=== PATIENT | female | born 1990 | race Caucasian/White ===

== ENCOUNTER 2024-11-05 11:02 | Outpatient (CLI) | payer BC, SELFPAY ==
[2024-11-05 09:34] LABS: Abs Immature Grans 0.04 10^3/uL (0.0-0.06); Absolute Eosinophil Count 0.31 10^3/uL (0.0-0.7); Absolute Lymphocyte Count 1.85 10^3/uL (1.2-3.4); Basophils % 0.5 %; Eosinophils % 2.4 %; HCT 39.6 % (36.0-46.0); HGB 13.7 g/dL (11.2-15.7); Immature Grans % 0.3 %; Lymphocytes % 14.5 %; MCH 31.2 pg (27.0-33.0); MCHC 34.6 % (32.0-36.0); MCV 90 fL (80-95); MPV 9.4 fL (8.0-11.0); Neutrophils % 76.3 %; Platelet Count 240 10^3/uL (130-400); RBC 4.39 10^6/uL (3.93-5.22); RDW 11.6 % (11.7-14.6); RDW-SD 37.9 fL; WBC 12.74 10^3/uL (4.4-10.8)
[2024-11-05 09:35] LABS: Absolute Basophil Count 0.06 10^3/uL (0.0-0.2); Absolute Monocyte Count 0.76 10^3/uL (0.1-0.8); Absolute Neutrophil Count 9.72 10^3/uL (1.2-6.7)
== END 2024-11-05 11:03 | disposition home or self-care (01) ==
LOC: LBO 11:02
PROVIDERS: PCP Nurse Practitioner Family; Visit Provider Obstetrics & Gynecology
DX: O20.9 Hemorrhage in early pregnancy, unspecified (principal); Z34.91 Encounter for supervision of normal pregnancy, unspecified, first trimester
CPT/HCPCS: 36415; 86850; 86900; 86901; 85025

== ENCOUNTER 2024-11-13 03:23 | Outpatient (CLI) | payer BC, SELFPAY ==
[2024-11-13 15:47] LABS: Panorama Kit Sent via Fed Ex
[2024-11-13 15:56] LABS: Abs Immature Grans 0.05 10^3/uL (0.0-0.06); Absolute Basophil Count 0.07 10^3/uL (0.0-0.2); Absolute Eosinophil Count 0.41 10^3/uL (0.0-0.7); Absolute Lymphocyte Count 2.19 10^3/uL (1.2-3.4); Absolute Monocyte Count 0.77 10^3/uL (0.1-0.8); Absolute Neutrophil Count 10.54 10^3/uL (1.2-6.7); Basophils % 0.5 %; Eosinophils % 2.9 %; HCT 35.1 % (36.0-46.0); HGB 12.3 g/dL (11.2-15.7); Immature Grans % 0.4 %; Lymphocytes % 15.6 %; MCH 31.1 pg (27.0-33.0); MCV 89 fL (80-95); MPV 9.8 fL (8.0-11.0); Monocytes % 5.5 %; Neutrophils % 75.1 %; Platelet Count 272 10^3/uL (130-400); RBC 3.95 10^6/uL (3.93-5.22); RDW 11.8 % (11.7-14.6); RDW-SD 37.9 fL; WBC 14.03 10^3/uL (4.4-10.8)
[2024-11-13 22:40] LABS: Hepatitis B Surface Ag Negative (Negative)
[2024-11-13 23:12] LABS: HIV-1/2 Ag & Ab Screen Negative (Negative)
[2024-11-13 23:15] LABS: Hepatitis C Ab w Rflx HCV PCR Negative (Negative)
[2024-11-14 11:17] LABS: Rubella IgG Ab (UVM) Positive (See Note)
[2024-11-14 11:20] LABS: Varicella IgG Antibody Positive (See Note)
[2024-11-15 18:14] LABS: Syphilis IgG w/Reflex Nonreactive (Nonreactive)
[2024-11-17 01:29] LABS: Specimen WB Whole Blood
[2024-11-26 12:32] LABS: Result Summary NEGATIVE; Specimen WB Whole Blood
== END 2024-11-13 03:24 | disposition home or self-care (01) ==
LOC: LBO 03:23
PROVIDERS: PCP Nurse Practitioner Family; Visit Provider Advanced Practice Midwife
DX: Z34.91 Encounter for supervision of normal pregnancy, unspecified, first trimester (principal)
CPT/HCPCS: 81220; 81222; 81329; 86787; 86803; 86850; 86900; 86901; 87340; 87389; 85025; 86762; 86780

== ENCOUNTER 2024-11-13 15:14 | Outpatient (REF) | payer BC, SELFPAY ==
[2024-11-15 13:24] LABS: Chlamydia Result Negative (Negative); GC Result Negative (Negative)
== END 2024-11-13 15:15 | disposition home or self-care (01) ==
LOC: LBN 15:14
PROVIDERS: PCP Nurse Practitioner Family; Visit Provider Advanced Practice Midwife
DX: Z34.91 Encounter for supervision of normal pregnancy, unspecified, first trimester (principal)
CPT/HCPCS: 87491; 87591; 87086

== ENCOUNTER 2024-12-10 02:45 | Outpatient (CLI) | payer BC, SELFPAY ==
[2024-12-13 15:20] LABS: AFP 38.7 ng/mL; Cigarette smoking status non-Smoker; GA used in risk estimate Scan estimate; IVF Pregnancy No; Initial or repeat testing Initial testing; Insulin dependent diabetes No; Maternal Weight 147 lbs; Number of Fetuses 1; Prev Pregnancy w/NTD No; RECOMMENDED FOLLOW UP None.; Results Summary Normal risk
== END 2024-12-10 02:46 | disposition home or self-care (01) ==
LOC: LBO 02:45
PROVIDERS: Advanced Practice Midwife; PCP Nurse Practitioner Family; Visit Provider Advanced Practice Midwife
DX: Z34.91 Encounter for supervision of normal pregnancy, unspecified, first trimester (principal)
CPT/HCPCS: 36415; 82105

== ENCOUNTER 2025-02-26 00:26 | Outpatient (CLI) | payer BC, SELFPAY ==
[2025-02-26 16:45] LABS: HCT 33.1 % (36.0-46.0); HGB 11.3 g/dL (11.2-15.7); MCHC 34.1 % (32.0-36.0); MCV 91 fL (80-95); MPV 10.4 fL (8.0-11.0); Platelet Count 214 10^3/uL (130-400); RBC 3.65 10^6/uL (3.93-5.22); RDW 12.6 % (11.7-14.6); RDW-SD 41.9 fL; WBC 11.63 10^3/uL (4.4-10.8)
[2025-02-26 16:58] LABS: Glucose,1 Hr (Glucola) 84 mg/dL (80-140)
== END 2025-02-26 00:27 | disposition home or self-care (01) ==
LOC: LBO 00:26
PROVIDERS: Advanced Practice Midwife; PCP Nurse Practitioner Family; Visit Provider Advanced Practice Midwife
DX: Z34.90 Encounter for supervision of normal pregnancy, unspecified, unspecified trimester (principal)
CPT/HCPCS: 36415; 82950; 85027

== ENCOUNTER 2025-04-23 15:49 | Outpatient (REF) | payer BC, SELFPAY | END 2025-04-23 15:50 | disposition home or self-care (01) | LOC: LBN 15:49 | PROVIDERS: PCP Nurse Practitioner Family; Visit Provider Advanced Practice Midwife | DX: Z34.93 Encounter for supervision of normal pregnancy, unspecified, third trimester (principal); Z3A.35 35 weeks gestation of pregnancy | CPT/HCPCS: 87081 ==

== ENCOUNTER 2025-05-29 07:36 | Outpatient (CLI) | payer BC, SELFPAY ==
[2025-05-29] VITALS (7 sets, daily range): BP systolic 135–147; BP diastolic 87–103; PULSE 65–79; TEMP 36.7
[2025-05-29 11:24] LABS: HCT 34.6 % (36.0-46.0); HGB 11.8 g/dL (11.2-15.7); MCH 30.6 pg (27.0-33.0); MCHC 34.1 % (32.0-36.0); MCV 90 fL (80-95); MPV 11.3 fL (8.0-11.0); Platelet Count 186 10^3/uL (130-400); RBC 3.85 10^6/uL (3.93-5.22); RDW 12.3 % (11.7-14.6); RDW-SD 40.2 fL; WBC 11.08 10^3/uL (4.4-10.8)
[2025-05-29 11:40] LABS: ALT 18 U/L (14-59); AST 25 U/L (15-37); Albumin 2.8 g/dL (3.4-5.0); Alkaline Phosphatase 165 U/L (46-116); Anion Gap 7.5 mmol/L (3-11); BUN 12 mg/dL (7-18); Bilirubin, Total 0.3 mg/dL (0.2-1.0); CO2 25.5 mmol/L (21.0-32.0); Calcium 8.7 mg/dL (8.5-10.1); Chloride 104 mmol/L (98-107); Estimated GFR 126.93 (mL/min/1.73m2); Glucose 77 mg/dL (74-106); Potassium 3.9 mmol/L (3.5-5.1); Sodium 137 mmol/L (136-145); Total Protein 6.4 g/dL (6.4-8.2); Uric Acid 4.8 mg/dL (2.6-6.0)
--- NOTE | 2025-05-29 12:29 | PDOC.NST_ITS ---
Date of service: 05/29/25 Time of Service: 12:29 NST Evaluation Reason for NST Reasons for Nonstress Test: POSTDATES Gestational Age Gestational Age in Weeks and Days: 41 Weeks and 0Days Test and Monitor Explained Test/Monitor Explained: Test Explained, Monitor Explained and Patient Verbalized Understanding Vital Signs Blood Pressure: 135/87 Pulse: 71 Temperature: 98.1 F NST Information Date on Monitor: 05/29/25 Time on Monitor: 10:05 Date off Monitor: 05/29/25 Time off Monitor: 11:58 Total Time on Monitor: 113 NST Interventions: PO Hydration Contraction Frequency: irregular, mild NST Evaluation Patient States Movement: Present FHR Baseline: 120 Variability: Moderate 6-25 bpm Accelerations: 15x15 Decelerations: None NST Results: Reactive Note Ultrasound Done: N/A. NST Note Note: Katerine Quinones came in for NST at 41 weeks. Her BP was elevated today and preeclampsia labs were drawn. She denies history of hypertension. serum labs WNL. protein/creatinene ratio pending. I discussed indication for IOL today and she agrees. She went home to pack and arrange child care centre director for her child and will return this afternoon for cervical ripening. Cervical exam declined at this time. NST Reviewed and Verified by: Ariana Santos
[2025-05-29 12:47] LABS: PROTEIN < 6.0 mg/dL
== END 2025-05-29 12:05 ==
LOC: BCD 07:37 → OBS 10:11
PROVIDERS: PCP Nurse Practitioner Family; Visit Provider Advanced Practice Midwife
DX: O48.0 Post-term pregnancy (principal); Z3A.41 41 weeks gestation of pregnancy
CPT/HCPCS: 80053; 85027; 86850; 86900; 86901; 59025; 82565; 84156; 84550

== ENCOUNTER 2025-05-29 17:05 | Inpatient (IN) | payer BC, SELFPAY ==
[2025-05-29] VITALS (8 sets, daily range): BP systolic 134–158; BP diastolic 86–97; PULSE 66–93; RESP 18; TEMP 36.8–37
--- NOTE | 2025-05-29 18:16 | W.PM.OBHPL1 ---
Date of service: 05/29/25 Time of Service: 18:16 Assessment and Plan Assessment and plan (1) Gestational hypertension: Status: Acute (2) Encounter for induction of labor: Status: Acute Assessment and plan: A: 34 yo @ 41 wks, gHTN noted today at postdates NST, no severe features Category 1 tracing, pre-e labs are WNL No increased risk for SD, increased risk for PPH d/t gHTN & IOL process Cvx favorable with Rivera score=6 Most recent BP reading 134/86, several mild range elevations today >4 hrs apart P: Options discussed with pt and partner Will start with 1 misoprostel dose and then proceed to AROM Dr. Hess available for consult prn, Pt considering avoiding epidural, discussed intrathecal option and comfort measures OB-HPI Labor/Delivery History of Present Illness Reason for Visit: induction Chief Complaint: Scheduled Induction of Labor Indication for Induction: Gestational Hypertension. REESE Calculator Estimated Delivery Date Method Current WG Current Estimate 05/22/25 Ultrasound #2 41w 0d Other Estimates 05/14/25 LMP (Certain) 42w 1d 05/31/25 Ultrasound #1 39w 5d History of Present Expected Delivery Route/Plan - CNM FOB/ - Rober Acevedo (2nd child together) BG Would like low intervention labor, but ok if needs epidural, [employer] suggests to call early d/t scoliosis GBS negative Specific Issues/Plan 1. cfDNA low risk female CF & SMA neg, AFP=nml NTD risk 2. Scoliosis, prior successful epidural, desires [employer] consult, done on the phone 04/29/25 3. Per [facility] notes: Pap due 2026, no hx abnormal 4. Leg cramps- magnesium recommended. Assessment: History Reviewed & Current Informed Consent Informed Consent: Induction of Labor and Risk,Benefits,Alternatives Discussed Review of Systems All systems reviewed & are unremarkable except as noted in HPI and below PFSH All Active Problems (Updated 05/29/25 @ 18:40 by Tammy Molina) Encounter for induction of labor (Acute) Gestational hypertension (Acute) Scoliosis (Acute) (Acute) Medical History (Updated 05/29/25 @ 18:40 by Tammy Molina) First trimester bleeding Nausea & vomiting Upper respiratory infection Family History Mother Hypertension Father Cancer melanoma Maternal Grandmother Cancer Dementia Social History (Updated 05/24/24 @ 18:20 by Pearl Lugo) Smoking/Tobacco Use Status: Never Second Hand Exposure: Yes Smoking risk assessment performed?: Yes Alcohol Intake: former Drug use: Never Substance use type: does not use Adopted: No Caregiver/Support person: No Household members: spouse and children Housing: house Number of Children: 1 Communication Needs: None Education Level: master's degree Do you need help understanding health information?: Never current occupation: Teacher Sexually active: Yes Do you think of yourself as: straight/heterosexual Current gender identity: female What is your relationship status?: How often do you talk on the phone with friends or family?: three or more times per week How often do you get together with friends or relatives?: twice per week Do you belong to any clubs or organized social groups?: yes Panel score (0-1 are the most socially isolated patients): 3 What type of physical activity do you participate in: walking, regular exercise and running Duration: 15-30 minutes/day Frequency: 3-4 times per week [place]/Roman Catholic: Non jain Special angeles needs: No Seatbelt use: always Helmet use: Yes Helmet use: always Drive intox or ride w/intox taxicab driver: No (never) Firearms in home: No Do you feel safe at home: Yes Do you feel safe in your relationship?: Yes Victim of physical abuse: No Victim of emotional abuse: No Victim of sexual abuse: No Would you like helpful sources: No History History 2 Para 1 Hx # Term Pregnancies 1 Multiple births 0 Hx # Pregnancies 0 Ectopic pregnancies 0 AB induced 0 Hx Number of Living Children 1 AB spontaneous 0 Past Pregnancies Del. Date GA/Weeks # Preg Succ Route Wgt Sex Labor Lgth Anesthesia Location Prov Complic 11/19/22 41 No Yes vaginal 7 lb 6 oz Male 12 hours [facility] Delivery Date: 11/19/22 Last Updated by: ABEL Hoffman Meds Allergies and Home Medications Allergies Allergy/AdvReac Type Severity Reaction Status Date / Time No Known Allergies Allergy Verified 05/29/25 15:36 Home Medications ?Medication ?Instructions ?Recorded ?Confirmed ?Type vits no.126-ferrous fum 1 tab PO DAILY 09/20/24 05/29/25 History 28 mg iron-folic acid 800 mcg tablet (Classic ) Exam Physical Exam Vital signs: Temp Pulse Resp BP 98.2 F 93 H 18 134/86 05/29/25 16:49 05/29/25 17:23 05/29/25 16:49 05/29/25 17:23 Vital Signs Reviewed: Yes Constitutional Constitutional: no acute distress, average body habitus and cooperative Detailed Labor and Delivery Exam Dilation: 2 Effacement (%): 90 station: -2 Position: LOP Cervix position: posterior Consistency: medium RIVERA Score(Cervical Ripeness Score): 6 Amniotic Membrane Status: Intact Monitor Mode: External Contraction Frequency(min): irreg Contraction Intensity: Mild Fetus A Heart Rate Baseline: 120 Monitor Accelerations: Present Monitor Decelerations: None Variability: Moderate (6-25 BPM) Categories: Category I Est. Weight: 7 lb 11.459 oz Est. Weight: 3500 gms HEENT Exam HEENT Exam: Normal Neck Exam Neck Exam: Normal Chest/Brest/Axilla Exam Chest Exam: Normal Breast Exam Breast Exam: Not Done Respiratory Exam Respiratory Exam: Normal Cardiovascular Exam Cardiovascular Exam: Normal Abdominal Exam Abdominal Exam: Normal (gravid, soft) Rectal Exam Rectal Exam: Normal Exam Exam: Normal Extremities Exam Extremities Exam: Normal Back/Spine/Pelvis Exam Back Exam: Normal (known mild scoliosis) Pelvis Adequate: Yes Skin Exam Skin Exam: Normal Neurological Exam Neurological Exam: Normal (nml patellar reflexes, neg clonus) Psychiatric Exam Psychiatric Exam: Normal Results Results Group Beta Strep: Negative Blood Type: O+ Rubella Status: Immune Varicella Immunity: Immune Risk Assessment Risk for Shoulder Dystocia Historical/Initial OB: NEGATIVE FOR: Pelvic Abnormality, Pre- BMI>30, Previous Shoulder Dystocia or Previous Macrosomia 36 Weeks: NEGATIVE FOR: Current Gestational DM, EFW>4500gms or Maternal Weight Gain>40lbs 40 Weeks: POSTIVE FOR: Post Dates; NEGATIVE FOR: EFW> 4500 gms or Maternal Weight Gain >40lb Increased Risk?: No Delivery Plan @ 36wks: Delivery Plan @ 40 wks: Risk for Pre-Eclampsia Date Initiated/Initials: at 41 wks pt developed gHTN, labs nml Yes, if one or more: NEGATIVE FOR: Hx Pre-E/Gest HTN, Chronic HTN, Multiple Gestation, Pre-gestational DM, Renal Disease, Systemic Lupus or APA Syndrome Yes, if 2 or more: NEGATIVE FOR: Nulliparity, Age>= 35 yrs, >10yr btwn pregnancies, BMI>30, ethinicty, Mother/Sister w/ Pre-E or Previous IUGR Risk for Post- Hemorrhage Initial: NEGATIVE FOR: Multiple Gestation, Previous PPH, Known Clotting Deficiency, Grand Multiparity or Anticoagulation 36 Weeks: NEGATIVE FOR: Anemia, hgb<10, Low platelets(thrombocytopenia), Gestational HTN or Pre-E, Polyhydraminios or EFW>4500gms 40 Weeks: POSITIVE FOR: Gestation HTN or Pre-E; NEGATIVE FOR: Anemia, hgb<10, Low platelets (thrombocytopenia), Polyhydraminios or EFW>4500gms At Risk?: Yes Counseled re: Active Management: Yes Risks Reviewed Risks Reviewed Upon Admission: Yes
[2025-05-29] MEDS: miSOPROStol 50 MCG TAB 25 MCG PO (19:39)
--- NOTE | 2025-05-29 23:14 | W.PM.OBNL1 ---
Date of service: 05/29/25 Time of Service: 23:14 Informed Consent Informed Consent: Risk,Benefits,Alternatives Discussed and Other (AROM) Pelvic Exam Dilation: 4.5 Effacement (%): 95 station: -1 Cervix Position: mid Consistency: soft Contractions Monitor Mode: External Contraction Frequency(min): q2-4 Intensity: Mild/Moderate Fetus A Monitor: External (US) Heart Rate Baseline: 125 Variability: Moderate (6-25 BPM) Categories: Category I Accelerations: Present Decelerations: None Amniotic Membrane Status: Ruptured Rupture Method: Artifical Amniotic Fluid: Clear Amount: moderate Date of Membrane Rupture: 05/29/25 Time of Membrane Rupture: 23:07 Assessment and Plan Assessment and plan (1) Encounter for induction of labor: Status: Acute Assessment and plan: A: Cooper score advanced to 10 AROM performed after pt consent, clear fluid returned EFM tracing during & after AROM is category 1 Most recent BP 140/97, no severe features P: Expectant management with IV access in place Hourly BP check, observe for labor progression Anticipate Objective Temp Pulse Resp BP 98.6 F 73 18 140/97 H 05/29/25 19:36 05/29/25 21:41 05/29/25 20:01 05/29/25 21:41 Vital Signs Reviewed: Yes Objective Narrative Objective Narrative: BP remains mild range Afebrile Pt and partner are relaxed and conversational IV access in pace and patent Reviewed risks of PPH and potential for need of antihypertensive medications Subjective Interval history since last seen: Contractions and cramps have increased but not too crazy, no bleeding, no ROM, no nausea, denies PLATA, consents to AROM.
[2025-05-30] VITALS (17 sets, daily range): BP systolic 125–154; BP diastolic 75–101; PULSE 64–83; RESP 16; TEMP 36.5–36.9
[2025-05-30] MEDS: Oxytocin/Normal Saline 30 UNITS/500 ML BAG 167 UNITS IV (01:27)
--- NOTE | 2025-05-30 01:43 | W.OBDELIVERY ---
Date of service: 05/30/25 Time of Service: 01:43 OB Labor/ Delivery Information Baby A Delivery Delivery Method: Spontaneaous Presentation: Cephalic Cephalic Position: Vertex Vertex Position: Left Occipital Anterior Breech Position: N/A Cord Description-Baby A: 3 Vessels, Nuchal Cord (loose), Reduced and Clamped/Cut Amniotic Fluid: Clear Estimated Blood Loss: 500 ml (floor ) Delivery Outcome: Liveborn Transferred: Remains with Mother Note: Pt moved quickly into active labor after AROM and used nitrous to good effect, chose H&K position on floor with pads under knees. Urges to bear down began, 2nd stage huddle completed, FHT's per doppler 120's and of vigorous female accomplished shortly thereafter over intact perineum, loose nuchal cord reduced overhead and shoulders delivered with ease. Infant passed between legs and into mother's arms. pitocin bolus IV begun, pt assisted onto bed and cord was clamped then cut by FOB at 5 minutes of age. Cord blood collected and Ppeper placenta delivered intact with 3VC ecentrically inserted. Fundus firm below umbilicus, lochia minimal, small superficial laceration noted at introitus, edges approximated with 1 stitch of 3.0 Vicryl, no other lacerations noted. Strong family bonding observed, apgars 9/9, weight 3310 gms. Mild range BP's noted prior to and after delivery, will continue to monitor. Providers Nurse Wildfire Prevention Specialist: Tammy Molina Nurse: Inocencia Molina Nurse: Ani Sears Labor/Delivery Information Group Beta Strep: Negative Rubella Status: Immune Blood Type: O+ Varicella Immunity: Immune Shoulder Dystocia: No Stages of Labor Onset of Labor Date: 05/29/25 Onset of Labor Time: 23:00 Complete Dilatation Date: 05/30/25 Complete Dilatation Time: 01:00 Labor - Stage 1 Duration: 2 hours and 0 minutes ROM Baby A: 05/29/25 ROM Baby A: 23:07 ROM Total Time- Baby A: [id number] Infant Delivery Date-Baby A: 05/30/25 Delivery Time-Baby A: 01:08 Labor Stage 2 Duration: 8 minutes Placenta Delivery Date-Baby A: 05/30/25 Placenta Delivery Time-Baby A: 01:16 Labor-Stage 3 Duration: 8 minutes Total Length of Labor-Baby A: 2 hours and 8 minutes Placenta Status: Delivered Baby A Gestational Status: Term (39-41.6 wks) Gestational Age in Weeks/Days: 41 Weeks and 1 Days weight: 7 lb 4.757 oz Weight Comment: 3310 gms Score-1 Minute Interval(Baby A) Heart Rate-1 minute: 100 BPM or Greater Respiratory Effort- 1 minute: Spontaneous/Strong Cry Muscle Tone-1 minute: Active Movement Reflex Response-1 minute: Prompt Response Color-1 minute: Bluish Hands or Feet Total Score-1 minute: 9 Score-5 Minute Interval(Baby A) Heart Rate- 5 minute: 100 BPM or Greater Respiratory Effort-5 minute: Spontaneous/Strong Cry Muscle Tone-5 minute: Active Movement Reflex Response-5 minute: Prompt Response Color-5 minute: Bluish Hands or Feet Total Score- 5 minute: 9
[2025-05-30] MEDS: Hamamelis Leaf/Glycerin 100 EACH BOX PR (02:06)
[2025-05-30] MEDS: Ibuprofen 600 MG TAB PO ×3 (02:06→15:20)
[2025-05-30] MEDS: Acetaminophen 325 MG TAB 650 MG PO ×3 (02:06→15:20)
[2025-05-30] MEDS: Dibucaine 1% 28 GM TUBE TP (02:07)
[2025-05-31 02:37] VITALS: BP 127/77
[2025-05-31 08:00] VITALS: BP 134/91; PULSE 76; RESP 12; TEMP 36.8
--- NOTE | 2025-05-31 09:16 | W.PM.OBPNV1 ---
Date of service: 05/31/25 Time of Service: 09:16 Assessment and Plan Assessment and plan (1) Encounter for care of lactating mother: Status: Acute Assessment and plan: A: PPD#2, nml recovery, well Pleased with experience P: RTO @ 2 & 6 wks Written instructions reviewed and given to pt Considering POP's for BCM (2) Term delivered: Status: Acute Subjective Subjective Patient comments: No complaints, Pain well controlled, Tolerating diet and Bowel Movement Patient's Mood: happy [place] baby status: Doing well, Rooming in and Strong Bonding Observed feeding status: Exclusively breast feeding Exam Physical Exam Vital signs: Temp Pulse Resp BP 97.7 F 73 16 127/77 05/30/25 20:59 05/30/25 20:59 05/30/25 20:59 05/31/25 02:37 Vital Signs Reviewed: Yes Constitutional Constitutional: no acute distress, average body habitus and cooperative HEENT Exam HEENT Exam: Normal Neck Exam Neck Exam: Normal Breast Exam Bilateral: Breast Exam: Normal and Soft Nipple Exam: Normal and Uninjured Respiratory Exam Respiratory Exam: Normal Cardiovascular Exam Cardiovascular Exam: Normal Abdominal Exam Abdomen: Other (soft, nontender) Fundal Exam Fundus: Below Umbilicus and Firm Rectal Exam Rectal Exam: Normal Exam Perineum: Intact Extremities Exam Extremity Exam: Normal, Full ROM and Warm to Touch Back/Spine/Pelvis Exam Back Exam: Normal Skin Exam Skin Exam: Normal Neurological Exam Neurological Exam: Normal Psychiatric Exam Psychiatric Exam: Normal
--- NOTE | 2025-05-31 09:30 | DSE_ITS ---
Date of service: 05/31/25 Time of Service: 09:30 DS: Diagnosis Discharge Diagnosis (1) Encounter for care of lactating mother: Status: Acute (2) Term delivered: Status: Acute Discharge Plan Disposition Condition: Good Discharge Details Reason For Visit: induction Admit Date/Time: 05/29/25 17:05 Admit Provider: Ariana Santos Attending Provider: Tammy Molina Primary Care Provider: Dusty Seth Hospital Course Hospital Course: gHTN diagnosed at scheduled 41 wk NST visit, pt consented to returning that day for IOL of labor, later that night without complications. Nml course, discharge on PPD#2, normotensive since delivery. Home Meds and New Rx's Prescriptions: No Action Classic 28 mg iron- 800 mcg tablet 1 tab PO DAILY Discharge Instructions Additional Instructions: Please keep your 2 and 6 week appointments, you may convert the 2 wk visit to a telehealth call if you prefer and feel well. Call for any and all concerns and questions. Stand Alone Forms: BC Instructions, BC Post Vaginal Deliver Activity:: Activity as Tolerated Equipment/Supplies:: No Equipment Needed Diet:: Normal Diet OB:DS Summary Summary Vaginal Delivery Method: Spontaneaous Episiotomy Description: None Laceration Description: Other Laceration Extension: N/A Contraception Discussed Contraception Discussed: Yes Contraceptive Plan: Control Pill/Patch, Gender-Baby A: Female weight: 7 lb 4.757 oz Status at Discharge Functional status at discharge: independent ambulation Overall status at discharge: patient is progressing back to baseline Mental Status: mental status grossly normal Speech and Movement: speech and movement normal and speech clear Mood: congruent mood Affect: normal affect Exam Physical Exam Vital signs: Temp Pulse Resp BP 97.7 F 73 16 127/77 05/30/25 20:59 05/30/25 20:59 05/30/25 20:59 05/31/25 02:37 Constitutional Constitutional: no acute distress, average body habitus and cooperative HEENT Exam HEENT Exam: Normal Neck Exam Neck Exam: Normal Breast Exam Bilateral: Breast Exam: Normal and Soft Respiratory Exam Respiratory Exam: Normal Cardiovascular Exam Cardiovascular Exam: Normal Abdominal Exam Abdomen: Other (soft, nontender) Fundal Exam Fundus: Below Umbilicus and Firm Rectal Exam Rectal Exam: Normal Exam Perineum: Intact Extremities Exam Extremity Exam: Normal, Full ROM and Warm to Touch Back/Spine/Pelvis Exam Back Exam: Normal Skin Exam Skin Exam: Normal Neurological Exam Neurological Exam: Normal Psychiatric Exam Psychiatric Exam: Normal PFSH All Active Problems (Updated 05/31/25 @ 09:16 by Tammy Molina) Encounter for care of lactating mother (Acute) Term delivered (Acute) Scoliosis (Acute) Medical History (Updated 05/31/25 @ 09:16 by Tammy Molina) Gestational hypertension Encounter for induction of labor First trimester bleeding Nausea & vomiting Upper respiratory infection Family History Mother Hypertension Father Cancer melanoma Maternal Grandmother Cancer Dementia Social History (Updated 05/24/24 @ 18:20 by Pearl Lugo) Smoking/Tobacco Use Status: Never Second Hand Exposure: Yes Smoking risk assessment performed?: Yes Alcohol Intake: former Drug use: Never Substance use type: does not use Adopted: No Caregiver/Support person: No Household members: spouse and children Housing: house Number of Children: 1 Communication Needs: None Education Level: master's degree Do you need help understanding health information?: Never current occupation: Teacher Sexually active: Yes Do you think of yourself as: straight/heterosexual Current gender identity: female What is your relationship status?: How often do you talk on the phone with friends or family?: three or more times per week How often do you get together with friends or relatives?: twice per week Do you belong to any clubs or organized social groups?: yes Panel score (0-1 are the most socially isolated patients): 3 What type of physical activity do you participate in: walking, regular exercise and running Duration: 15-30 minutes/day Frequency: 3-4 times per week [place]/Episcopal: Non yazidi Special ang[place] needs: No Seatbelt use: always Helmet use: Yes Helmet use: always Drive intox or ride w/intox taxi truck driver: No (never) Firearms in home: No Do you feel safe at home: Yes Do you feel safe in your relationship?: Yes Victim of physical abuse: No Victim of emotional abuse: No Victim of sexual abuse: No Would you like helpful sources: No History History 2 Para 1 Hx # Term Pregnancies 1 Multiple births 0 Hx # Pregnancies 0 Ectopic pregnancies 0 AB induced 0 Hx Number of Living Children 1 AB spontaneous 0 Past Pregnancies Del. Date GA/Weeks # Preg Succ Route Wgt Sex Labor Lgth Anesth esia Location Prov Complic 11/19/22 41 No Yes vaginal 7 lb 6 oz Male 12 hours [facility] [place] Delivery Date: 11/19/22 Last Updated by: ABEL Hoffman DS: Data Vitals/I&O Vitals and I&O: Vital Signs Temperature 97.7 F 05/30/25 20:59 Temperature Source Oral 05/30/25 20:59 Pulse 73 05/30/25 20:59 Respiratory Rate 16 05/30/25 20:59 Respiratory Depth Normal 05/30/25 21:00 Blood Pressure 127/77 05/31/25 02:37 Blood Pressure Mean 93 05/31/25 02:37 Pain Level 4 05/30/25 15:20 Intake & Output 05/30/25 05/30/25 05/31/25 11:59 23:59 11:59 Intake Total 500 / 500 Output Total 1300 / 1300 Balance -800 / -800 Intake: IV 500 / 500 Output: Urine 800 / 800 Blood 500 / 500
== END 2025-05-31 11:30 | disposition home or self-care (01) | DRG 807 ==
PROVIDERS: Admitting Provider Advanced Practice Midwife; PCP Nurse Practitioner Family; Visit Provider Advanced Practice Midwife
DX: O13.4 Gestational [pregnancy-induced] hypertension without significant proteinuria, complicating childbirth (principal); Z37.0 Single live birth; O48.0 Post-term pregnancy; Z3A.41 41 weeks gestation of pregnancy; O69.81X0 Labor and delivery complicated by cord around neck, without compression, not applicable or unspecified; O70.0 First degree perineal laceration during delivery